=== PATIENT | female | born 1950 | race Caucasian/White ===

== ENCOUNTER 2018-09-15 12:53 | Outpatient (CLI) | payer MEDICARE ==
--- NOTE | 2018-09-15 13:36 | MMO ---
Bilateral MAMMO Bilat Diag [facility]. CLINICAL HISTORY: Patient is 68 years old and is seen for diagnostic exam and pain in both breasts. The patient has the following family history of breast cancer: mother and 2 maternal aunts. The patient has no personal history of cancer. VIEWS: The views performed were: bilateral craniocaudal with tomosynthesis; bilateral mediolateral oblique with tomosynthesis; and bilateral mediolateral with tomosynthesis. FILMS COMPARED: The present examination has been compared to prior imaging studies performed at [facility] on 05/17/2015, 05/18/2016 and 09/15/2018. MAMMOGRAM FINDINGS: There are scattered fibroglandular densities. There is no radiographic abnormality in the region of the focal pain in the outer region of both breasts. There are no suspicious masses, suspicious calcifications, or new areas of architectural distortion. IMPRESSION: THERE IS NO MAMMOGRAPHIC EVIDENCE OF MALIGNANCY. NO MAMMOGRAPHIC OR SONOGRAPHIC ABNORMALITIES ARE PRESENT TO CORRELATE WITH THE SITE OF PAIN. THE PATIENT WILL BE REFERRED BACK TO HER CLINICIAN FOR FURTHER CARE. BIOPSY SHOULD NOT BE PRECLUDED BY THE ABSCENCE OF IMAGING FINDINGS, IN THE SETTING OF CLINICAL CONCERN FOR MALIGNANCY. THE FINDINGS AND RECOMMENDATIONS WERE DISCUSSED WITH THE PATIENT PRIOR TO HER LEAVING THE CENTER. A ROUTINE FOLLOW-UP MAMMOGRAM IN 1 YEAR IS RECOMMENDED. THE RESULTS OF THIS EXAM WERE SENT TO THE PATIENT. ACR BI-RADS Category 2 - Benign finding MAMMOGRAPHY NOTE: 1. A negative mammogram report should not delay a biopsy if a dominant of clinically suspicious mass is present. 2. Approximately 10% to 15% of breast cancers are not detected by mammography. 3. Adenosis and dense breasts may obscure an underlying neoplasm. Reported by: RACHEL NOLASCO MD Electonically Signed: [id number]
--- NOTE | 2018-09-15 15:12 | ULT ---
BILATERAL BREAST DIAGNOSTIC ULTRASOUND: INDICATION: Pain within the outer aspect of the right breast. COMPARISON: Bilateral breast diagnostic mammogram dated 09/15/2018. FINDINGS: No suspicious sonographic abnormality is seen within the region of pain in the breast bilaterally. IMPRESSION: BIRADS category 2 - benign. No sonographic evidence to suggest malignancy. POS: OFF
== END 2018-09-15 12:54 | disposition home or self-care (01) ==
LOC: BICMAMMO 12:53
PROVIDERS: ATTEND Family Medicine
DX: N64.4 Mastodynia (principal); Z80.3 Family history of malignant neoplasm of breast
CPT/HCPCS: 76642 ×2; 77066; G0279

== ENCOUNTER 2019-01-31 18:03 | Emergency (ER) | payer MEDICARE ==
[2019-01-31] MEDS ORDERED: Ibuprofen 100 MG/5 ML UDCUP ONE (18:09)
--- NOTE | 2019-01-31 19:15 | RAD ---
Chest one view Abdomen 2 views HISTORY: Abdominal pain. FINDINGS: Cardiac silhouette and pulmonary vasculature are unremarkable. Mediastinum is midline with dorsal column stimulator in place. No lobar consolidation or evidence of free subdiaphragmatic gas. Large amount of stool throughout the colon and rectum. No differential air-fluid levels or evidence o f free subdiaphragmatic gas. Postoperative and degenerative changes of the lumbar spine. Phleboliths project over the pelvis. IMPRESSION: Constipation.
== END 2019-01-31 19:45 | disposition home or self-care (01) ==
LOC: ERS 18:03
DX: K59.00 Constipation, unspecified (principal); F31.9 Bipolar disorder, unspecified; E78.5 Hyperlipidemia, unspecified; E03.9 Hypothyroidism, unspecified; Z79.899 Other long term (current) drug therapy
CPT/HCPCS: 74022

== ENCOUNTER 2019-02-10 10:42 | Emergency (ER) | payer MEDICARE ==
[2019-02-10] MEDS ORDERED: Dexamethasone 10 MG/ML VIAL ONE (12:53)
[2019-02-10] MEDS ORDERED: Famotidine 20 MG TAB ONE (12:53)
[2019-02-10] MEDS ORDERED: hydrOXYzine 25 MG TAB ONE (12:53)
[2019-02-10] MEDS ORDERED: diphenhydrAMINE 25 MG CAP ONE (14:39)
== END 2019-02-10 15:15 | disposition home or self-care (01) ==
LOC: ERS 10:42
DX: T78.49XA Other allergy, initial encounter (principal); E03.9 Hypothyroidism, unspecified; E78.5 Hyperlipidemia, unspecified; F31.9 Bipolar disorder, unspecified; Z79.899 Other long term (current) drug therapy
CPT/HCPCS: 99283; J1100; Q0163

== ENCOUNTER 2020-07-14 14:56 | Outpatient (CLI) | payer MEDICARE | END 2020-07-14 14:57 | disposition home or self-care (01) | LOC: BICMAMMO 14:56 | PROVIDERS: ATTEND Family Medicine | DX: Z12.31 Encounter for screening mammogram for malignant neoplasm of breast (principal); Z80.3 Family history of malignant neoplasm of breast | CPT/HCPCS: 77063; 77067 ==

== ENCOUNTER 2020-12-14 10:54 | Outpatient (CLI) | payer MEDICARE | END 2020-12-14 10:55 | disposition home or self-care (01) | LOC: CT 10:54 | PROVIDERS: ATTEND Family Medicine | DX: S09.90XA Unspecified injury of head, initial encounter (principal); M47.812 Spondylosis without myelopathy or radiculopathy, cervical region | CPT/HCPCS: 70450; 72125 ==

== ENCOUNTER 2021-09-25 10:41 | Outpatient (CLI) | payer MEDICARE | END 2021-09-25 10:42 | disposition home or self-care (01) | LOC: BICMAMMO 10:41 | PROVIDERS: ATTEND Family Medicine | DX: Z12.31 Encounter for screening mammogram for malignant neoplasm of breast (principal); Z80.3 Family history of malignant neoplasm of breast | CPT/HCPCS: 77063; 77067 ==

== ENCOUNTER 2021-10-15 10:36 | Emergency (ER) | payer MEDICARE | END 2021-10-15 12:58 | disposition home or self-care (01) | LOC: ERS 10:36 | DX: M25.561 Pain in right knee (principal); M25.461 Effusion, right knee ==

== ENCOUNTER 2021-10-29 16:21 | Emergency (ER) | payer MEDICARE ==
[2021-10-29 16:54] LABS: Hemoglobin 16.6 g/dL (12.0-16.0); Mean Corpuscular HGB CONC 31.6 g/dL (32.0-36.0); Mean Corpuscular Hemoglobin 29.4 pg (27.0-31.0); Mean Corpuscular Volume 93.3 fL (78.0-98.0); Mean Platelet Volume 7.3 fL (7.4-10.4); Platelet Count 259 thou/uL (130-400); RBC Distribution Width 12.7 % (11.5-14.5); Red Blood Cell (RBC) Count 5.65 mill/uL (4.20-5.40); White Blood Cell (WBC) Count 21.4 thou/uL (4.8-10.8)
[2021-10-29 17:10] LABS: Band 8 % (5-11); Lymphocytes 6 % (21-51); MDiff Complete? YES; Monocytes 7 % (0-10); Neutrophil 79 % (42-75); Platelet Morphology Comment Appears Adequate; RBC Morphology Normal
[2021-10-29 17:11] LABS: Acetaminophen Less than 10.0 mcg/mL (10.0-30.0); Alcohol Less than 10 mg/dL (Less than 10); CK (CPK) 33 U/L (29-168); Salicylate Less than 8.0 mg/dL (15.0-30.0)
[2021-10-29 17:13] LABS: ALT (SGPT) 36 U/L (8-55); AST (SGOT) 30 U/L (5-34); Albumin 4.5 g/dL (3.4-4.8); Alkaline Phosphatase 92 U/L (40-110); Anion Gap 22 mmol/L (10-20); BUN (Urea Nitrogen) 21 mg/dL (9.8-20.1); Bilirubin, Total 0.2 mg/dL (0.2-1.2); Calc. Creatinine Clearance 0 mL/min (70-130); Calcium 10.7 mg/dL (7.8-10.44); Carbon Dioxide 19 mmol/L (23-31); Chloride 107 mmol/L (98-107); Estimated GFR 46; Globulin 3.6 g/dL (2.4-3.5); Glucose 191 mg/dL (83-110); Potassium 5.5 mmol/L (3.5-5.1); Protein, Total 8.1 g/dL (5.8-8.1); Sodium 142 mmol/L (136-145)
[2021-10-29] MEDS ORDERED: Ondansetron PF 4 MG/2 ML Vial ONE (17:16)
[2021-10-29 18:15] LABS: Bilirubin Negative (Negative); Blood, Urine Negative (Negative); Clarity Clear (Clear); Glucose, Urine (Dipstick) Normal (Negative); Ketone, Urine Trace mg/dL (Negative); Leukocyte Negative Leu/uL (Negative); Nitrite Negative (Negative); Protein, Urine (Dipstick) Negative (Neg-Trace); Specific Gravity, Urine 1.014 (1.002-1.036); Urobilinogen Normal mg/dL (Less than 2)
[2021-10-29 18:24] LABS: Amphetamine Not Detected (NotDetected); Barbiturates Screen Not Detected (NotDetected); Benzodiazepine Screen Not Detected (NotDetected); Cocaine Metabolite Screen Not Detected (NotDetected); Methadone Not Detected (NotDetected); Methamphetamine Not Detected (NotDetected); Opiate Screen Not Detected (NotDetected); Oxycodone Screen Not Detected (NotDetected); Phencyclidine (PCP) Not Detected (NotDetected); THC/Cannabinoid Screen Not Detected (NotDetected); Tricyclic Screen Not Detected (NotDetected)
[2021-10-29 20:14] LABS: SARS-CoV-2 NAA Rapid Test Not Detected (NotDetected)
[2021-10-29] MEDS ORDERED: Ondansetron ODT 4 MG TAB ONE (23:52)
[2021-10-30] MEDS ORDERED: Ondansetron ODT 4 MG TAB ONE (02:56)
== END 2021-10-30 12:00 ==
LOC: ERS 16:21
DX: T39.312A Poisoning by propionic acid derivatives, intentional self-harm, initial encounter (principal); F32.9 Major depressive disorder, single episode, unspecified; E03.9 Hypothyroidism, unspecified; I10 Essential (primary) hypertension; Z79.899 Other long term (current) drug therapy; Z20.822 Contact with and (suspected) exposure to COVID-19
CPT/HCPCS: 80178; 80306; 80307; 81003; 82550; 93005; 96361; 96374; 99285; U0002; 36415; 80053; 84443; 85025; J2405; Q0162

== ENCOUNTER 2022-02-05 16:27 | Emergency (ER) | payer MEDICARE ==
[2022-02-05 18:05] LABS: #Basophils 0.1 thou/uL (0.0-0.2); #Eosinphils 0.1 thou/uL (0.0-0.7); #Lymphocytes 1.9 thou/uL (1.20-3.40); #Monocytes 0.6 thou/uL (0.11-0.59); #Neutrophils 10.8 thou/uL (1.40-6.50); %Basophils 0.6 % (0.0-1.0); %Eosinophils 0.5 % (0.0-10.0); %Lymphocytes 14.2 % (21.0-51.0); %Monocytes 4.6 % (0.0-10.0); %Neutrophils 80.1 % (42.0-75.0); Hemoglobin 15.2 g/dL (12.0-16.0); Mean Platelet Volume 6.9 fL (7.4-10.4); Platelet Count 202 10x3/uL (130-400); RBC Distribution Width 13.3 % (11.5-14.5); Red Blood Cell (RBC) Count 5.07 mill/uL (4.20-5.40); White Blood Cell (WBC) Count 13.5 10x3/uL (4.8-10.8)
[2022-02-05 18:19] LABS: Acetaminophen Less than 10.0 mcg/mL (10.0-30.0); Alcohol Less than 10 mg/dL (Less than 10); Salicylate Less than 8.0 mg/dL (15.0-30.0)
[2022-02-05 18:22] LABS: ALT (SGPT) 24 U/L (8-55); AST (SGOT) 27 U/L (5-34); Albumin 4.3 g/dL (3.4-4.8); Alcohol Less than 10 mg/dL (Less than 10); Alkaline Phosphatase 56 U/L (40-110); Anion Gap 13 mmol/L (10-20); BUN (Urea Nitrogen) 14 mg/dL (9.8-20.1); Bilirubin, Total 0.4 mg/dL (0.2-1.2); CK (CPK) 176 U/L (29-168); Calc. Creatinine Clearance 0 mL/min (70-130); Calcium 9.8 mg/dL (7.8-10.44); Carbon Dioxide 25 mmol/L (23-31); Chloride 106 mmol/L (98-107); Estimated GFR 48; Globulin 2.8 g/dL (2.4-3.5); Glucose 122 mg/dL (83-110); Potassium 3.9 mmol/L (3.5-5.1); Protein, Total 7.1 g/dL (5.8-8.1); Sodium 140 mmol/L (136-145)
[2022-02-05 18:30] LABS: Bilirubin Negative (Negative); Blood, Urine Negative (Negative); Clarity Clear (Clear); Glucose, Urine (Dipstick) Normal (Negative); Ketone, Urine 10 mg/dL (Negative); Leukocyte Negative Leu/uL (Negative); Nitrite Negative (Negative); Protein, Urine (Dipstick) Negative (Neg-Trace); Specific Gravity, Urine 1.019 (1.002-1.036); Urobilinogen Normal mg/dL (Less than 2)
[2022-02-05 18:37] LABS: Amphetamine Not Detected (NotDetected); Barbiturates Screen Not Detected (NotDetected); Benzodiazepine Screen Not Detected (NotDetected); Cocaine Metabolite Screen Not Detected (NotDetected); Methadone Not Detected (NotDetected); Methamphetamine Not Detected (NotDetected); Opiate Screen Not Detected (NotDetected); Oxycodone Screen Not Detected (NotDetected); Phencyclidine (PCP) Not Detected (NotDetected); THC/Cannabinoid Screen Detected (NotDetected); Tricyclic Screen Not Detected (NotDetected)
[2022-02-06] MEDS ORDERED: Acetaminophen 500 MG TAB ONE (13:06)
== END 2022-02-06 13:09 ==
LOC: ERS 16:27
DX: T42.6X2A Poisoning by other antiepileptic and sedative-hypnotic drugs, intentional self-harm, initial encounter (principal); I10 Essential (primary) hypertension; R94.6 Abnormal results of thyroid function studies; D72.829 Elevated white blood cell count, unspecified; E03.9 Hypothyroidism, unspecified; E78.5 Hyperlipidemia, unspecified
CPT/HCPCS: 36415; 51701; 70450; 72125; 80053; 80178; 80306; 80307; 81003; 82550; 84443; 85025; 93005; 94760

== ENCOUNTER 2022-11-06 08:19 | Outpatient (CLI) | payer MEDICARE | END 2022-11-06 08:20 | disposition home or self-care (01) | LOC: BICMAMMO 08:19 | PROVIDERS: ATTEND Family Medicine | DX: Z12.31 Encounter for screening mammogram for malignant neoplasm of breast (principal); Z13.820 Encounter for screening for osteoporosis; M85.851 Other specified disorders of bone density and structure, right thigh; M85.852 Other specified disorders of bone density and structure, left thigh; Z80.3 Family history of malignant neoplasm of breast | CPT/HCPCS: 77063; 77067; 77080 ==

== ENCOUNTER 2023-08-26 15:30 | Emergency (ER) | payer MEDICARE | END 2023-08-26 17:03 | disposition home or self-care (01) | LOC: ERS 15:30 | DX: M54.16 Radiculopathy, lumbar region (principal) | CPT/HCPCS: J1100; J2270; 96372 ==

== ENCOUNTER 2023-08-27 06:56 | Emergency (ER) | payer MEDICARE ==
[2023-08-27] MEDS ORDERED: HYDROcodone/Acetaminophen 5/325 mg Tablet ONE (07:36)
[2023-08-27] MEDS ORDERED: Losartan 25 MG TAB ONE (10:05)
[2023-08-27] MEDS ORDERED: Gabapentin 100 MG CAP ONE (10:05)
[2023-08-27] MEDS ORDERED: Levothyroxine Sodium 112 MCG TAB PO SCH (10:15)
[2023-08-27] MEDS ORDERED: Trospium 20 MG TAB PO SCH (10:15)
[2023-08-27] MEDS ORDERED: Pregabalin 50 MG CAP PO SCH ×2 (10:15→10:45)
[2023-08-27] MEDS ORDERED: Venlafaxine HCl XR 150 MG CAP PO SCH (10:15)
[2023-08-27] MEDS ORDERED: Aripiprazole 10 MG TAB PO SCH (10:15)
[2023-08-27] MEDS ORDERED: Levothyroxine Sodium 112 MCG TAB ONE (10:34)
[2023-08-27] MEDS ORDERED: Levothyroxine Sodium 25 MCG TAB PO SCH (10:45)
== END 2023-08-27 11:20 | disposition home or self-care (01) ==
LOC: ERS 06:56
DX: R25.1 Tremor, unspecified (principal); F19.230 Other psychoactive substance dependence with withdrawal, uncomplicated; E03.9 Hypothyroidism, unspecified; E78.5 Hyperlipidemia, unspecified; Z76.0 Encounter for issue of repeat prescription; Z79.899 Other long term (current) drug therapy
CPT/HCPCS: 99284